=== PATIENT | male | born 1975 | race African-American/Black ===

== ENCOUNTER 2023-11-01 07:41 | Outpatient (CLI) | payer OTHER, SELFPAY ==
--- NOTE | ~2023-11-01 | MR_ITS ---
EXAMINATION: MR pelvis wo/w con DATE: 11/01/2023 09:37 INDICATION: Right scrotal mass. TECHNIQUE: Magnetic resonance imaging (MRI) of the pelvis was performed without and with 20 mL MultiH ance intravenous contrast. COMPARISON: None. FINDINGS: There is a 23.2 x 16.5 x 15.6 cm heterogenous mass containing fat and enhancing tissue in the right s crotum. The testes are separate from the mass and are normal. No hydrocele. IMPRESSION: 1. 23.2 cm mass in the scrotum on the right. 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 Reviewed, dictated and finalized at location E. IMPRESSION: 1. 23.2 cm mass in the scrotum on the right. 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
== END 2023-11-01 07:42 ==
LOC: MICIMG 07:42
PROVIDERS: PCP Urology; Visit Provider Urology
DX: N50.89 Other specified disorders of the male genital organs (principal)
CPT/HCPCS: 72197; A9577